=== PATIENT | female | born 1990 | race Caucasian/White ===

== ENCOUNTER 2018-04-26 19:39 | Inpatient (IN) | payer MEDICAID ==
[2018-04-26] MEDS ORDERED: MINERAL OIL PO PRN (22:19)
[2018-04-26] MEDS ORDERED: XYLOCAINE 2% INFILTRATI ONE (22:19)
[2018-04-26] MEDS ORDERED: BRETHINE SUB-Q PRN (22:19)
[2018-04-26] MEDS ORDERED: BRETHINE IVP PRN (22:19)
[2018-04-26] MEDS ORDERED: PITOCin/NS 30 UNIT/500ML 30 UNITS/500 ML BAG IV SCH (22:20)
[2018-04-26] MEDS ORDERED: AMPICILLIN/NS 2 GM/100 ML 2 GM/100 ML BAG IV ONE (22:25)
[2018-04-26] MEDS ORDERED: GENTAMICIN/NS 100 MG/100 ML 100 MG/100 ML BAG IV SCH (22:30)
[2018-04-26] MEDS ORDERED: STADOL IV PRN (22:57)
[2018-04-26] MEDS ORDERED: PITOCin/NS 20 UNIT/1000ML DRIP 20 UNITS/1,000 ML BAG IV SCH (23:00)
[2018-04-26] MEDS ORDERED: LACTATED RINGERS 1,000 ML IV SCH (23:00)
[2018-04-26 23:39] LABS: Hematocrit 36.3 % (30.3-42.9); Hemoglobin 12.3 gm/dl (10.1-14.3); Mean Corpuscular HGB Conc 34 % (30-34); Mean Corpuscular Volume 83 fl (79-97); Platelet Count 297 K/mm3 (140-440); Red Blood Count 4.36 M/mm3 (3.65-5.03); Red Cell Distribution Width 16.2 % (13.2-15.2)
[2018-04-27] MEDS ORDERED: AMPICILLIN/NS 1 GM/50 ML 1 GM/50 ML BAG IV SCH (02:20)
[2018-04-27] MEDS ORDERED: NARCAN 2 MG/2 ML IV PRN (03:14)
--- NOTE | 2018-04-27 03:14 | Anesthesia Consultation ---
Anesthesia Consult and Med Hx Date of service: 04/27/18 - Airway Anesthetic Teeth Evaluation: Good ROM Head & Neck: Adequate Mental/Hyoid Distance: Adequate Mallampati Class: Class II Intubation Access Assessment: Probably Good - Pre-Operative Health Status ASA Pre-Surgery Classification: ASA2 Proposed Anesthetic Plan: Epidural, Spinal - Pulmonary Hx Asthma: No - Cardiovascular System Hx Hypertension: No - Central Nervous System Hx Seizures: No Hx Psychiatric Problems: No - Endocrine Hx Renal Disease: No Hx Hypothyroidism: No Hx Hyperthyroidism: No - Hematic Hx Anemia: No Hx Sickle Cell Disease: No - Other Systems Hx Alcohol Use: Yes
--- NOTE | 2018-04-27 03:35 | History and Physical Report ---
History of Present Illness Date of examination: 04/27/18 Date of admission: 04/26/18 21:40 Chief complaint: My water broke History of present illness: Pt is a 27 year old who presents with complaint of srom since Friday at 2pm. Patient has had a regular course since 16 weeks gestation. Past History Past Medical History: no pertinent history Past Surgical History: no surgical history [employer] History: trichomonas Family/Genetic History: none Social history: single - Obstetrical History Expected Date of Delivery: 04/21/18 Actual Gestation: 40 Week(s) 6 Day(s) : 2 Number of Living Children: 1 Medications and Allergies Allergies Allergy/AdvReac Type Severity Reaction Status Date / Time No Known Allergies Allergy Verified 04/26/18 22:18 Active Meds: Active Medications Butorphanol Tartrate (Stadol) 2 mg IV Q2H PRN PRN Reason: Labor Pain Last Admin: 04/27/18 00:37 Dose: 2 mg Documented by: Ephedrine Sulfate (Ephedrine Sulfate) 10 mg IV Q2M PRN PRN Reason: Hypotension Ephedrine Sulfate (Ephedrine Sulfate) 10 mg IV Q2M PRN PRN Reason: Hypotension Ampicillin Sodium (Ampicillin/Ns 1 Gm/50 Ml) 1 gm in 50 mls @ 100 mls/hr IV Q4HR CONRAD; Protocol Last Admin: 04/27/18 02:52 Dose: 100 mls/hr Documented by: Lactated Ringer's (Lactated Ringers) 1,000 mls @ 125 mls/hr IV DIRECT CONRAD Last Admin: 04/26/18 23:00 Dose: 125 mls/hr Documented by: Oxytocin/Sodium Chloride (Pitocin/Ns 20 Unit/1000ml Drip) 20 units in 1,000 mls @ 125 mls/hr IV DIRECT CONRAD Oxytocin/Sodium Chloride (Pitocin/Ns 30 Unit/500ml) 30 units in 500 mls @ 2 mls/hr IV TITR CONRAD; Protocol Last Admin: 04/26/18 23:04 Dose: 2 mls/hr, 2 mls/hr Documented by: Gentamicin Sulfate/Sodium Chloride (Garamycin/Ns 100 Mg/100 Ml) 100 mg in 100 mls @ 200 mls/hr IV Q8HR CONRAD Last Admin: 04/26/18 23:50 Dose: 200 mls/hr Documented by: Fentanyl/Bupivacaine/Sodium Chlor (Fentanyl-Bupiv 2 Mcg/Ml-0.125%) 200 mcg in 100 mls @ 12 mls/hr EPIDURAL TITR CONRAD; Protocol Mineral Oil (Mineral Oil) 30 ml PO QHS PRN PRN Reason: Constipation Naloxone HCl (Narcan 2 Mg/2 Ml) 0.2 mg IV Q5M PRN PRN Reason: Respiratory sedation Terbutaline Sulfate (Brethine) 0.25 mg SUB-Q ONCE PRN PRN Reason: Hyperstimulation/Hypertonicity Terbutaline Sulfate (Brethine) 0.25 mg IVP ONCE PRN PRN Reason: Hyperstimulation/Hypertonicity Review of Systems All systems: negative Genitourinary: contractions - Vital Signs Vital signs: Vital Signs Temp 99.5 F 04/26/18 20:30 Temp Pulse Resp BP Pulse Ox 97.9 F 89 22 142/84 98 04/27/18 02:56 04/27/18 03:28 04/27/18 02:56 04/27/18 03:28 04/27/18 03:28 - Physical Exam Breasts: Positive: deferred Cardiovascular: Regular rate, Normal S1, Normal S2 Lungs: Positive: Clear to auscultation, Normal air movement Abdomen: Positive: normal appearance, soft, normal bowel sounds. Negative: distention, tenderness Genitourinary (Female): Positive: normal external genitalia, normal perenium Vulva: both: normal Vagina: Positive: normal moisture. Negative: discharge Cervix: Negative: lesion, discharge Uterus: Positive: normal size, normal contour Adnexa: both: normal Anus/Rectum: Positive: normal perianal skin, heme negative. Negative: rectal mass, hemorrhoids Extremities: Deep Tendon Reflex Grade: Normal +2 - Obstetrical FHR: auscultation normal Cervical Dilatation: 3 Cervical Effacement Percentage: 50 station: -2 Uterine Contraction Pattern: Regular Uterine Contraction Intensity: Moderate Results Result Diagrams: 04/26/18 23:00 Abnormal lab results 04/26/18 Range/Units 23:00 RDW 16.2 H (13.2-15.2) % All other labs normal. Assessment and Plan IUP at 40.6 in labor with prolonged SROM. Pt did not present to triage until over 30 hours post srom and did not call to inquire because she said her contractions weren't strong enough. Will admit for labor. Augment with pitocin. Treat with antibiotics for prolonged rupture. Anticipate
[2018-04-27] MEDS ORDERED: fentaNYL-BUPIV 2 MCG/ML-0.125% 200 MCG/100 ML BAG EPIDURAL SCH (04:00)
--- NOTE | 2018-04-27 04:43 | Procedure Note ---
OB Delivery Note - Delivery Date of Delivery: 04/27/18 Surgeon: LIBRA SERRATO Estimated blood loss: 200cc - Vaginal Delivery presentation: vertex Delivery position: OA Intrapartum events: PROM->1hr before delivery Delivery induction: none Delivery monitor: external FHT, external uterine Route of delivery: Delivery placenta: spontaneous Delivery cord: 3 umbilical vessels Delivery laceration: none Anesthesia: epidural Delivery comments: Viable female delivered over intact perineum. Mouth and nose suctioned on field. Cord cut and clamped and placed on warmer. Placenta delivered spontaneously and intact with 3vc. No lacerations. Excellent hemostasis. - Infant A at 1 minute: 8 at 5 minutes: 9 Infant Gender: Female (8 pounds 2 ounces)
[2018-04-27] MEDS ORDERED: BENADRYL PO PRN (06:24)
[2018-04-27] MEDS ORDERED: LANSINOH TP PRN (06:24)
[2018-04-27] MEDS ORDERED: TUCKS PAD TP PRN (06:24)
[2018-04-27] MEDS ORDERED: TYLENOL PO PRN (06:24)
[2018-04-27] MEDS ORDERED: MILK OF MAGNESIA PO PRN (06:24)
[2018-04-27] MEDS ORDERED: SODIUM CHLORIDE FLUSH SYRINGE 10 ML IV PRN (06:24)
[2018-04-27] MEDS ORDERED: ZOFRAN IV PRN (06:24)
[2018-04-27] MEDS ORDERED: PHENERGAN PO PRN (06:24)
[2018-04-27] MEDS ORDERED: NORCO 5/325 PO PRN (06:24)
[2018-04-27] MEDS ORDERED: PHENERGAN PR PRN (06:24)
[2018-04-27] MEDS ORDERED: DULCOLAX PR PRN (06:24)
[2018-04-27] MEDS: IBUPROFEN PO SCH ×3 (06:42→22:05)
--- NOTE | 2018-04-27 08:43 | Discharge Summary ---
Providers - Providers Date of Admission: 04/26/18 21:40 Date of discharge: 04/28/18 Attending physician: TREVON GAMBOA MD Primary care physician: TREVON GAMBOA MD Hospitalization Reason for admission: active labor Delivery: Episiotomy: none Laceration: none Incision: normal, dry complications: none Discharge diagnosis: IUP at term delivered [place] baby: female Hospital course: patient came in delivered a viable female. d/c home in stable condition on PP day 2 to f/u in 4 weeks Condition at discharge: Good Disposition: DC-01 TO HOME OR SELFCARE Plan - Discharge Medications Prescriptions: Ibuprofen [Motrin] 600 mg PO Q8H PRN #30 tablet PRN Reason: Pain oxyCODONE /ACETAMINOPHEN [Percocet 5/325] 1 tab PO Q6HR PRN #30 tablet PRN Reason: Pain - Provider Discharge Summary Additional instructions: [] Smoking cessation referral if applicable(refer to patient education folder for contact #) [] Refer to [facility] Call your doctor immediately for: * Fever > 100.5 * Heavy vaginal bleeding ( >1 pad per hour) * Severe persistent headache * Shortness of breath * Reddened, hot, painful area to leg or breast * Drainage or odor from incision. * Keep incision clean and dry at all times and follow doctor's instructions regarding bathing/showering - Follow up plan Follow up: TREVON GAMBOA MD [Primary Care Provider] - 7 Days
--- NOTE | 2018-04-27 08:43 | Progress Note ---
Assessment and Plan A/P PPD 1 doing well consider d/c home tomorrow with f/u in 4 weeks Subjective - Subjective Date of service: 04/27/18 Principal diagnosis: Patient reports: appetite normal, voiding normally, pain well controlled, flatus, ambulating normally : doing well Objective - Vital Signs Latest vital signs: Vital Signs Temp Pulse Resp BP BP Pulse Ox 04/27/18 06:42 20 04/27/18 06:30 98.8 F 76 18 120/77 97 04/27/18 05:46 79 130/71 04/27/18 05:41 86 129/68 04/27/18 05:36 87 117/62 04/27/18 05:31 88 120/64 04/27/18 05:26 83 123/68 04/27/18 05:16 123/64 04/27/18 05:11 90 123/60 04/27/18 05:06 83 121/64 04/27/18 05:01 94 H 131/70 04/27/18 04:56 80 131/77 04/27/18 04:51 91 H 126/73 04/27/18 04:46 88 134/78 04/27/18 04:41 96 H 118/62 04/27/18 04:36 135/72 04/27/18 04:33 105 H 98 04/27/18 04:31 97 H 133/63 04/27/18 04:28 92 H 100 04/27/18 04:26 93 H 136/72 04/27/18 04:23 117 H 100 04/27/18 04:22 118 H 186/88 04/27/18 04:18 101 H 100 04/27/18 04:16 90 138/88 04/27/18 04:13 99 H 98 04/27/18 04:11 87 135/81 04/27/18 04:08 97 H 98 04/27/18 04:06 80 135/81 04/27/18 04:03 89 99 04/27/18 04:01 85 131/79 04/27/18 03:58 95 H 98 04/27/18 03:57 85 135/80 04/27/18 03:53 84 99 04/27/18 03:52 83 135/79 04/27/18 03:48 85 99 02/18/19 03:46 90 130/79 02/18/19 03:43 99 H 99 02/18/19 03:42 89 135/82 02/18/19 03:38 86 99 0218/19 03:36 89 128/80 0218/19 03:33 96 H 98 0218/19 03:30 92 H 134/77 0218/19 03:28 89 142/84 98 0218/19 03:26 90 139/85 0218/19 03:24 90 134/81 0218/19 03:23 86 98 0218/19 03:22 91 H 140/85 0218/19 03:20 82 137/84 0218/19 03:18 89 136/83 98 0218/19 03:16 86 149/89 0218/19 03:14 81 139/83 0218/19 03:13 90 98 0218/19 03:12 84 133/78 18/19 03:11 90 149/84 04/27/19 03:08 92 H 142/67 98 0218/19 03:07 88 161/70 0218/19 03:04 97 H 142/76 18/19 03:03 87 99 0218/19 03:02 84 125/72 0218/19 02:59 104 H 133/90 0218/19 02:58 95 H 97 18/19 02:56 97.9 F 22 18/19 02:30 79 100 02/18/19 02:25 89 96 02/18/19 02:20 90 99 18/19 02:15 89 98 18/19 02:10 87 95 02/18/19 02:05 81 97 02/18/19 02:00 103 H 95 02/18/19 01:59 90 94 02/18/19 01:55 87 95 02/18/19 01:50 82 136/79 95 02/18/19 01:45 85 96 02/18/19 01:41 78 94 02/18/19 01:40 77 95 02/18/19 01:35 87 98 02/18/19 01:30 83 96 02/18/19 01:25 88 94 02/18/19 01:20 90 96 02/18/19 01:15 99 H 96 02/18/19 01:10 86 96 04/27/18 01:05 82 97 04/27/18 01:00 84 96 04/27/18 00:55 87 96 04/27/18 00:51 87 125/78 04/27/18 00:50 81 97 04/27/18 00:45 97 H 97 04/27/18 00:40 77 100 04/27/18 00:35 82 100 04/27/18 00:30 73 100 04/27/18 00:25 82 100 04/27/18 00:20 98.1 F 84 22 100 04/27/18 00:15 106 H 98 04/27/18 00:04 94 H 99 04/26/18 23:59 80 98 04/26/18 23:54 77 99 04/26/18 23:49 86 123/78 97 04/26/18 23:44 88 97 04/26/18 23:39 84 96 04/26/18 23:34 84 96 04/26/18 23:29 81 96 04/26/18 23:24 88 97 04/26/18 23:19 87 96 04/26/18 23:14 90 96 04/26/18 23:09 82 97 04/26/18 23:04 85 98 04/26/18 22:59 88 98 04/26/18 22:54 86 98 04/26/18 22:50 80 127/79 04/26/18 22:49 86 98 04/26/18 22:44 87 99 04/26/18 22:39 81 99 04/26/18 22:34 77 99 04/26/18 22:29 84 99 04/26/18 22:24 84 98 04/26/18 22:19 99 H 98 04/26/18 22:14 84 100 04/26/18 22:09 98 H 99 04/26/18 22:04 98 H 98 04/26/18 21:59 84 97 04/26/18 21:49 78 126/80 04/26/18 21:44 98.8 F 04/26/18 20:40 82 130/80 04/26/18 20:30 99.5 F Intake and Output 04/26/18 04/27/18 04/27/18 23:59 07:59 15:59 Other: Weight 79.379 kg Estimated Blood Loss 200 - Exam Breasts: Present: normal Cardiovascular: Present: Regular rate, Normal S1 Lungs: Present: Clear to auscultation, Normal air movement Abdomen: Present: normal appearance, soft, normal bowel sounds. Absent: distention, tenderness, guarding Uterus: Present: normal, firm, fundal height below umbilicus. Absent: bogginess, tenderness Extremities: Present: normal Incision: Present: normal, dry, intact - Labs Labs: Abnormal lab results 04/26/18 Range/Units 23:00 RDW 16.2 H (13.2-15.2) %
[2018-04-27] MEDS: PRENATAL VITAMIN PO SCH (10:50)
[2018-04-27] MEDS: COLACE PO SCH ×2 (10:50→22:05)
[2018-04-27] MEDS ORDERED: GENTAMICIN/NS 80 MG/100 ML 100 ML IV SCH (22:23)
[2018-04-27 22:42] LABS: Hematocrit 30.3 % (30.3-42.9); Hemoglobin 10.3 gm/dl (10.1-14.3)
[2018-04-28] MEDS: IBUPROFEN PO SCH ×4 (04:10→23:01)
[2018-04-28] MEDS ORDERED: BOOSTRIX IM ONE (06:00)
[2018-04-28] MEDS: COLACE PO SCH ×2 (11:36→22:44)
[2018-04-28] MEDS: PRENATAL VITAMIN PO SCH (11:36)
[2018-04-29] MEDS: IBUPROFEN PO SCH ×3 (05:32→17:58)
[2018-04-29] MEDS: PRENATAL VITAMIN PO SCH (09:25)
[2018-04-29] MEDS: COLACE PO SCH (10:20)
[2018-04-29 16:19] VITALS: BP 113/71
[2018-04-30] MEDS ORDERED: AFLURIA QUAD 2018-2019 SYRINGE IM ONE (12:00)
== END 2018-04-29 17:59 | disposition home or self-care (01) | DRG 775 ==
LOC: TRG 19:39 → LD 21:40 → TRG 21:40 → OB 04-27 06:01
PROVIDERS: ADMIT Obstetrics & Gynecology; ATTEND Obstetrics & Gynecology
PROC: 10E0XZZ Delivery of Products of Conception, External Approach (ICD-10-PCS; principal; 2018-04-27)
PROC: 3E0R3BZ Introduction of Anesthetic Agent into Spinal Canal, Percutaneous Approach (ICD-10-PCS; 2018-04-27)
PROC: 00HU33Z Insertion of Infusion Device into Spinal Canal, Percutaneous Approach (ICD-10-PCS; 2018-04-27)
PROC: 3E0234Z Introduction of Serum, Toxoid and Vaccine into Muscle, Percutaneous Approach (ICD-10-PCS; 2018-04-28)
DX: O42.92 Full-term premature rupture of membranes, unspecified as to length of time between rupture and onset of labor (principal); Z3A.40 40 weeks gestation of pregnancy; Z37.0 Single live birth; Z23 Encounter for immunization
CPT/HCPCS: 36415; 85014; 85018; 85027; 86592; 86850; 86900; 86901; G0378; A6250; J0290; J0595; J1580; J2590; J7120